=== PATIENT | female | born 1975 ===

== ENCOUNTER 2024-08-09 05:11 | Day surgery (SDC) | payer OTHER ==
[2024-08-06 14:11] VITALS: BP 150/88
[~2024-08-09] VITALS: Ht 157.5 cm; Wt 95.3 kg
[~2024-08-09 05:11] MED LIST: ESOMEPRAZOLE MA40 MG PO; FAMOTIDINE40 MG PO; GLIMEPIRIDE1 MG; HADLIMA40 MG/0.8; PROAIR RESPICL90 MCG IH; SYNJARDY 12.5-1 EACH PO; TREXALL5 MG PO
[2024-08-09] MEDS ORDERED: BUPIVACAINE LIPOSOME/PF 266 MG/20 ML VIAL IJ ONE (08:15)
[2024-08-09] MEDS ORDERED: TRIAMCINOLONE ACETONIDE 40 MG/ML VIAL IJ ONE (08:30)
[2024-08-09] MEDS ORDERED: HEMOSTATIC MATRIX 1 KIT KIT TOP ONE (08:30)
[2024-08-09] MEDS ORDERED: METRONIDAZOLE/SODIUM CHLORIDE 500 MG/100 ML PIGGYBACK IV ONE (08:30)
[2024-08-09] MEDS ORDERED: DIBUCAINE 30 GM TUBE RECTAL ONE (08:30)
[2024-08-09] MEDS ORDERED: MORPHINE SULFATE 4 MG/ML VIAL IV ONE ×2 (11:00→12:00)
== END 2024-08-09 13:25 | disposition home or self-care (01) ==
LOC: CIR.AMB 05:11
PROVIDERS: ATTEND Colon & Rectal Surgery
DX: K64.2 Third degree hemorrhoids (principal); K64.3 Fourth degree hemorrhoids; Z91.013 Allergy to seafood; Z91.041 Radiographic dye allergy status